=== PATIENT | female | born 1995 | race African-American/Black ===

== ENCOUNTER 2017-10-02 15:10 | Emergency (ER) | payer OTHER ==
[~2017-10-02] VITALS: Ht 157.5 cm; Wt 79.4 kg
--- NOTE | ~2017-10-02 | EKG ---
[address] [address] ELECTROCARDIOGRAM REPORT Name: BRITTANI SHEN Room #: [facility]#: [id number] Admission: 10/02/17 Attend Phys: Discharge: 10/02/17 Date of : [birth year] Report #: [id number] THIS REPORT FOR: //name// [facility] ED Test Date: 2017-10-02 Test Time: 15:16:50 Pat Name: BRITTANI SHEN Department: Room: Gender: F Manager Internal: jl : 1995 Requested By: Marcelo Rinaldi Order Number: [id number] MD: Artemio Lopez Measurements Intervals [place] Rate: 81 P: 0 WI: 193 QRS: 35 QRSD: 88 T: 37 QT: 378 QTc: 439 Interpretive Statements Sinus rhythm No significant abnormality No previous ECG available for comparison Electronically Signed On 10-03-2017 8:40:03 CDT by Artemio Lopez [email or web address] <ELECTRONICALLY SIGNED> By: Artemio Lopez MD, [facility] 10/03/17 0840 1516 1516 Artemio Lopez MD, FACC /EPI
[~2017-10-02 15:10] MED LIST: APAP/CODEINE ELI5 M1 PO; CLARITIN10 MG PO; DIPHENHIST50 MG PO; IBUPROFEN 600600 M1 PO; IBUPROFEN 800800 M1 PO; NOHOMEMEDICATIONS; NORCO 5-325 TA1 EACH PO; PREDNISONE 20 M20 MG PO; ZPAK PO
[2017-10-02 16:13] LABS: ABSOLUTE NEUTROPHILS 4.3 thou/uL (1.4-8.2); BASOPHILS 0.9 % (0.0-2.0); EOSINOPHILS 0.5 % (0.0-3.0); HEMATOCRIT 38.7 % (37.0-47.0); HEMOGLOBIN 13.4 gm/dL (12.0-15.0); LYMPHOCYTES 37.8 % (24.0-44.0); MCH 30.9 pg (26.0-34.0); MCHC 34.5 g/dL (28.0-37.0); MCV 89.7 fL (80.0-100.0); MONOCYTES 5.2 % (1.0-8.0); PLATELET COUNT 248 thou/uL (150-400); POLYS 55.6 % (36.0-66.0); RBC 4.32 mil/uL (4.20-5.00); WBC 7.7 thou/uL (4.0-11.0)
[2017-10-02 16:21] LABS: CALCIUM 9.8 mg/dL (8.5-10.1); CREATININE 0.9 mg/dL (0.6-1.0)
[2017-10-02 16:23] LABS: POTASSIUM 2.6 mmol/L (3.5-5.1)
[2017-10-02 17:10] LABS: ALBUMIN 4.5 g/dL (3.4-5.0); DIRECT BILIRUBIN 0.1 mg/dL (<0.1-0.3); TOTAL BILIRUBIN 0.6 mg/dL (<0.1-1.0); TOTAL PROTEIN 8.3 g/dL (6.4-8.2)
[2017-10-02] MEDS ORDERED: K-DUR 20 MEQ T20 MEQ PO (17:13)
[2017-10-02 17:35] VITALS: BP 112/68
== END 2017-10-02 18:01 | disposition home or self-care (01) ==
LOC: ER 15:10
PROVIDERS: Emergency Medicine; Physician Assistant
DX: E87.6 Hypokalemia (principal); R10.11 Right upper quadrant pain; R05 Cough; J45.909 Unspecified asthma, uncomplicated; Z88.0 Allergy status to penicillin

== ENCOUNTER 2018-07-10 12:28 | Emergency (ER) | payer OTHER ==
[~2018-07-10] VITALS: Ht 160 cm; Wt 74.4 kg
[~2018-07-10 12:28] MED LIST changes: +IBUPROFEN 400400 M2 PO; +K-DUR 20 MEQ T20 MEQ PO
[2018-07-10] MEDS ORDERED: CEFDINIR300 MG PO (13:49)
[2018-07-10] MEDS ORDERED: VENTOLIN HFA 1818 GM INH (14:00)
[2018-07-10 14:35] VITALS: BP 138/66
== END 2018-07-10 14:25 | disposition home or self-care (01) ==
LOC: ER 12:28
DX: J02.9 Acute pharyngitis, unspecified (principal); H66.90 Otitis media, unspecified, unspecified ear; R05 Cough; J45.909 Unspecified asthma, uncomplicated; Z88.0 Allergy status to penicillin